=== PATIENT | male | born 1965 | race African-American/Black ===

== ENCOUNTER 2020-09-03 14:22 | Emergency (ER) | payer MEDICAID, OTHER ==
[~2020-09-03] VITALS: Ht 185.4 cm; Wt 104.3 kg
[2020-09-03 16:45] VITALS: BP 152/109
== END 2020-09-03 17:10 | disposition home or self-care (01) ==
LOC: ER 14:22
DX: Z76.0 Encounter for issue of repeat prescription (principal); S61.411A Laceration without foreign body of right hand, initial encounter; I10 Essential (primary) hypertension; K21.9 Gastro-esophageal reflux disease without esophagitis; F17.210 Nicotine dependence, cigarettes, uncomplicated; X58.XXXA Exposure to other specified factors, initial encounter; Y93.89 Activity, other specified; Y92.89 Other specified places as the place of occurrence of the external cause; Y99.8 Other external cause status